=== PATIENT | female | born 1950 | race Caucasian/White ===

== ENCOUNTER 2018-09-09 19:28 | Inpatient (IN) | payer OTHER ==
[2018-09-09 20:18] LABS: ADD MAN DIFF? NO
[2018-09-09 20:20] LABS: BASOPHILS % 0.4 % (0.0-2.0); EOSINOPHILS # 0.1 10^3/ul (0.0-0.5); HEMATOCRIT 37.6 % (37.0-47.0); HEMOGLOBIN 12.4 g/dl (12.0-16.0); LYMPHOCYTES # 1.8 10^3/ul (0.8-2.9); LYMPHOCYTES % 18.8 % (15.0-51.0); MEAN CORPUSCULAR HEMOGLOBIN 27.3 pg (29.0-33.0); MEAN CORPUSCULAR VOLUME 82.8 fl (82.0-101.0); MEAN PLATELET VOLUME 9.7 fl (7.4-10.4); MONOCYTE # 0.4 10^3/ul (0.3-0.9); MONOCYTES % 4.3 % (0.0-11.0); NEUTROPHIL # 7.2 10^3/ul (1.6-7.5); NEUTROPHILS % 75.2 % (39.0-77.0); PLATELET COUNT 264 10^3/UL (140-415); RED BLOOD COUNT 4.54 10^6/ul (4.20-5.40); RED CELL DISTRIBUTION WIDTH 13.9 % (11.5-14.5)
[2018-09-09 20:20] LABS: WHITE BLOOD COUNT 9.6 10^3/ul (4.8-10.8)
[2018-09-09 20:33] LABS: ADD UMIC YES; UR ASCORBIC ACID NEGATIVE (NEGATIVE); UR BILIRUBIN (Dip) NEGATIVE (NEGATIVE); UR BLOOD (Dip) NEGATIVE (NEGATIVE); UR CLARITY CLEAR (CLEAR); UR COLOR YELLOW (YELLOW); UR GLUCOSE (Dip) 3+ mg/dL (NEGATIVE); UR KETONES (Dip) NEGATIVE (NEGATIVE); UR LEUKOCYTE ESTERASE (Dip) 1+ Leu/ul (NEGATIVE); UR NITRITE (Dip) NEGATIVE (NEGATIVE); UR RBC 2 /HPF (0-5); UR SPECIFIC GRAVITY (Dip) 1.021 (1.003-1.030); UR TOTAL PROTEIN (Dip) NEGATIVE (NEGATIVE); UR UROBILINOGEN (Dip) NEGATIVE (NEGATIVE); UR WBC 41 /HPF (0-5)
[2018-09-09 20:40] LABS: ALANINE AMINOTRANSFERASE 77 IU/L (13-69); ALBUMIN 3.7 g/dl (3.3-4.9); ALBUMIN/GLOBULIN RATIO 1.15; ALKALINE PHOSPHATASE 284 IU/L (42-121); ANION GAP 5 (5-13); ASPARTATE AMINO TRANSFERASE 75 IU/L (15-46); BILIRUBIN,INDIRECT 0.2 mg/dl (0-1.1); BILIRUBIN,TOTAL 0.2 mg/dl (0.2-1.3); BLOOD UREA NITROGEN 13 mg/dl (7-20); CALCIUM 9.5 mg/dl (8.4-10.2); CARBON DIOXIDE 27 mmol/L (21-31); CHLORIDE 100 mmol/L (97-110); CREATININE 0.54 mg/dl (0.44-1.00); Estimated GFR > 60 mL/min (>60); LIPASE 121 U/L (23-300); POTASSIUM 4.4 mmol/L (3.5-5.1); SODIUM 132 mmol/L (135-144); TOTAL PROTEIN 6.9 g/dl (6.1-8.1)
[2018-09-09 20:44] LABS: GLUCOSE 473 mg/dl (70-220)
[2018-09-09] MEDS: CEFTRIAXONE 1 GM/50 ML (PMX) 50 ML IVPB (22:08)
[2018-09-09] MEDS: SOD CHLORIDE 0.9% 1,000 ML IV (22:08)
[2018-09-09] MEDS: INSULIN REGULAR, HUMAN 100 UNIT/1 ML 3ML VIAL SC (22:10)
[2018-09-09] MEDS: ONDANSETRON 4 MG INJ IV (22:32)
[2018-09-09] MEDS: HYDROmorphONE 1 MG/ML SYG IV (22:33)
[2018-09-10] MEDS ORDERED: ALBUTEROL/IPRATROPIUM (NEB) 3 ML AMP HHN
[2018-09-10] MEDS ORDERED: NACL 0.9% 3 ML SYG IV
[2018-09-10] MEDS ORDERED: ONDANSETRON 4 MG INJ IV
[2018-09-10] MEDS ORDERED: GLUCAGON 1 MG INJ IM (00:30)
[2018-09-10] MEDS ORDERED: GLUCOSE GEL 15 GRAM TUBE PO ×2 (00:30)
[2018-09-10] MEDS ORDERED: GLUCOSE GEL 15 GRAM TUBE BUCCAL (00:30)
[2018-09-10] MEDS ORDERED: DEXTROSE 50% 50 ML SYRINGE IV ×2 (00:30)
[2018-09-10] MEDS: INSULIN GLARGINE [LANtus] 3 ML PEN SC ×2 (01:06→21:37)
[2018-09-10] MEDS: HYDROCODONE/APAP (5/325) TAB PO ×2 (01:15→20:49)
[2018-09-10] MEDS: INSULIN ASPART [NOVOLOG] 3 ML PEN SC ×6 (01:50→20:43)
[2018-09-10] MEDS: ACCU-CHEK XX (01:51)
[2018-09-10 05:56] LABS: ADD MAN DIFF? NO
[2018-09-10 05:59] LABS: WHITE BLOOD COUNT 10.9 10^3/ul (4.8-10.8)
[2018-09-10 05:59] LABS: BASOPHILS % 0.3 % (0.0-2.0); EOSINOPHILS # 0.1 10^3/ul (0.0-0.5); EOSINOPHILS % 0.9 % (0.0-7.0); HEMATOCRIT 34.8 % (37.0-47.0); HEMOGLOBIN 11.7 g/dl (12.0-16.0); LYMPHOCYTES # 2.5 10^3/ul (0.8-2.9); LYMPHOCYTES % 23.2 % (15.0-51.0); MEAN CORPUSCULAR HEMOGLOBIN 27.9 pg (29.0-33.0); MEAN CORPUSCULAR HGB CONC 33.6 g/dl (32.0-37.0); MEAN CORPUSCULAR VOLUME 82.9 fl (82.0-101.0); MEAN PLATELET VOLUME 9.8 fl (7.4-10.4); MONOCYTE # 1.1 10^3/ul (0.3-0.9); MONOCYTES % 9.8 % (0.0-11.0); NEUTROPHIL # 7.1 10^3/ul (1.6-7.5); NEUTROPHILS % 65.4 % (39.0-77.0); PLATELET COUNT 241 10^3/UL (140-415); RED CELL DISTRIBUTION WIDTH 14.2 % (11.5-14.5)
[2018-09-10 06:16] LABS: HEMOGLOBIN A1C 13.8 % (0-5.9)
[2018-09-10 06:26] LABS: ALANINE AMINOTRANSFERASE 58 IU/L (13-69); ALBUMIN 3.3 g/dl (3.3-4.9); ALBUMIN/GLOBULIN RATIO 1.03; ALKALINE PHOSPHATASE 195 IU/L (42-121); ANION GAP 7 (5-13); ASPARTATE AMINO TRANSFERASE 41 IU/L (15-46); BILIRUBIN,INDIRECT 0.3 mg/dl (0-1.1); BILIRUBIN,TOTAL 0.3 mg/dl (0.2-1.3); BLOOD UREA NITROGEN 11 mg/dl (7-20); CALCIUM 9.1 mg/dl (8.4-10.2); CARBON DIOXIDE 32 mmol/L (21-31); CHLORIDE 101 mmol/L (97-110); CREATININE 0.57 mg/dl (0.44-1.00); Estimated GFR > 60 mL/min (>60); GLUCOSE 195 mg/dl (70-220); MAGNESIUM 1.7 mg/dl (1.7-2.5); PHOSPHORUS 4.8 mg/dl (2.5-4.9); POTASSIUM 4.1 mmol/L (3.5-5.1); SODIUM 140 mmol/L (135-144); TOTAL PROTEIN 6.5 g/dl (6.1-8.1)
[2018-09-10] MEDS: metFORMIN 500 MG TAB PO ×2 (08:01→17:33)
[2018-09-10] MEDS: ENOXAPARIN 40 MG/0.4 ML SYG SC (08:05)
[2018-09-10] MEDS: GABAPENTIN 400 MG CAP PO ×3 (08:05→20:44)
[2018-09-10] MEDS: LISINOPRIL 5 MG TAB PO (08:09)
[2018-09-10] MEDS: ACETAMINOPHEN 325 MG TAB PO (11:02)
[2018-09-10] MEDS: SOD CHLORIDE 0.9% 250 ML IV (16:30)
[2018-09-10] MEDS: SOD CHLORIDE 0.9% 1,000 ML IV (17:33)
[2018-09-10] MEDS: CEFTRIAXONE 1 GM/50 ML (PMX) 50 ML IVPB (20:44)
[2018-09-10] MEDS ORDERED: ATORVASTATIN 20 MG TAB PO (21:00)
[2018-09-11] MEDS: ACCU-CHEK XX (02:00)
[2018-09-11] MEDS ORDERED: ACCU-CHEK XX (02:00)
[2018-09-11] MEDS: SOD CHLORIDE 0.9% 1,000 ML IV ×2 (03:20→14:07)
[2018-09-11] MEDS: HYDROCODONE/APAP (5/325) TAB PO (05:20)
[2018-09-11 06:10] LABS: ADD MAN DIFF? NO
[2018-09-11 06:24] LABS: BASOPHILS % 0.2 % (0.0-2.0); EOSINOPHILS # 0.3 10^3/ul (0.0-0.5); EOSINOPHILS % 3.2 % (0.0-7.0); HEMATOCRIT 35.3 % (37.0-47.0); HEMOGLOBIN 11.5 g/dl (12.0-16.0); LYMPHOCYTES # 2.2 10^3/ul (0.8-2.9); LYMPHOCYTES % 27.7 % (15.0-51.0); MEAN CORPUSCULAR HEMOGLOBIN 27.4 pg (29.0-33.0); MEAN CORPUSCULAR HGB CONC 32.6 g/dl (32.0-37.0); MEAN CORPUSCULAR VOLUME 84.2 fl (82.0-101.0); MEAN PLATELET VOLUME 10.2 fl (7.4-10.4); MONOCYTE # 0.8 10^3/ul (0.3-0.9); MONOCYTES % 10.1 % (0.0-11.0); NEUTROPHIL # 4.7 10^3/ul (1.6-7.5); NEUTROPHILS % 58.2 % (39.0-77.0); PLATELET COUNT 263 10^3/UL (140-415); RED BLOOD COUNT 4.19 10^6/ul (4.20-5.40); RED CELL DISTRIBUTION WIDTH 14.3 % (11.5-14.5)
[2018-09-11 06:35] LABS: MAGNESIUM 1.7 mg/dl (1.7-2.5)
[2018-09-11 06:35] LABS: PHOSPHORUS 4.8 mg/dl (2.5-4.9)
[2018-09-11 06:47] LABS: ANION GAP 7 (5-13); BLOOD UREA NITROGEN 15 mg/dl (7-20); CALCIUM 8.6 mg/dl (8.4-10.2); CARBON DIOXIDE 25 mmol/L (21-31); CHLORIDE 108 mmol/L (97-110); CREATININE 0.62 mg/dl (0.44-1.00); Estimated GFR > 60 mL/min (>60); GLUCOSE 166 mg/dl (70-220); POTASSIUM 3.8 mmol/L (3.5-5.1); SODIUM 140 mmol/L (135-144)
[2018-09-11 07:05] LABS: HEPATITIS B SURFACE ANTIGEN NEGATIVE (NEGATIVE)
[2018-09-11 07:22] LABS: HEPATITIS C VIRAL ANTIBODY NEGATIVE (NEGATIVE)
[2018-09-11 07:23] LABS: HEPATITIS B SURFACE ANTIBODY NEGATIVE (NEGATIVE)
[2018-09-11] MEDS: metFORMIN 500 MG TAB PO ×2 (07:57→17:19)
[2018-09-11] MEDS: GABAPENTIN 400 MG CAP PO ×2 (07:58→12:25)
[2018-09-11] MEDS: INSULIN ASPART [NOVOLOG] 3 ML PEN SC ×6 (08:01→17:21)
[2018-09-11] MEDS: ENOXAPARIN 40 MG/0.4 ML SYG SC (08:06)
[2018-09-11] MEDS: LISINOPRIL 5 MG TAB PO (08:08)
== END 2018-09-11 17:58 | disposition home or self-care (01) | DRG 872 ==
LOC: E/R 19:28 → PP2 21:11
DX: A41.9 Sepsis, unspecified organism (principal); N12 Tubulo-interstitial nephritis, not specified as acute or chronic; E11.65 Type 2 diabetes mellitus with hyperglycemia; I10 Essential (primary) hypertension; J45.909 Unspecified asthma, uncomplicated; B96.20 Unspecified Escherichia coli [E. coli] as the cause of diseases classified elsewhere; Z79.4 Long term (current) use of insulin
CPT/HCPCS: 36415; 74176; 80048; 80053; 81001; 82962; 83036; 83690; 83735; 84100; 85025; 86706; 86803; 87086; 87340; 99285-25